=== PATIENT | male | born 1945 | race Caucasian/White ===

== ENCOUNTER → 2017-06-15 | Outpatient (CLI) | payer MEDICARE, OTHER | END | disposition home or self-care (01) | LOC: CFH 13:47 | PROVIDERS: ATTEND Family Medicine | DX: G31.89 Other specified degenerative diseases of nervous system (principal); J34.89 Other specified disorders of nose and nasal sinuses; G31.84 Mild cognitive impairment of uncertain or unknown etiology | CPT/HCPCS: 70551 ==

== ENCOUNTER → 2018-03-23 | Outpatient (CLI) | payer MEDICARE | END | disposition home or self-care (01) | LOC: RAD 13:03 | PROVIDERS: ATTEND Family Medicine | DX: T17.908A Unspecified foreign body in respiratory tract, part unspecified causing other injury, initial encounter (principal) | CPT/HCPCS: 71046 ==

== ENCOUNTER 2018-09-04 13:41 | Outpatient (CLI) | payer MEDICARE | END 2018-09-04 23:59 | disposition home or self-care (01) | LOC: CVU 13:41 | PROVIDERS: ATTEND Internal Medicine Cardiovascular Disease | DX: I65.23 Occlusion and stenosis of bilateral carotid arteries (principal); E78.2 Mixed hyperlipidemia; R42 Dizziness and giddiness | CPT/HCPCS: 93306; 93880 ==